=== PATIENT | male | born 1940 | race American Indian/Alaskan Native ===

== ENCOUNTER 2016-10-24 13:22 | Outpatient (CLI) | payer MEDICARE | END 2016-10-24 13:23 | disposition home or self-care (01) | LOC: CT 13:22 | PROVIDERS: ATTEND Otolaryngology | DX: R13.12 Dysphagia, oropharyngeal phase (principal) | CPT/HCPCS: 36415; 82565; 84520 ==

== ENCOUNTER 2016-11-02 09:05 | Outpatient (CLI) | payer MEDICARE ==
--- NOTE | 2016-11-02 09:57 | Fluoroscopy Report ---
Modified barium swallow: History: Dysphagia. Findings: There is no anatomic obstruction to flow of liquid and semisolid the cervical esophagus. Extrinsic pressure noted on the posterior aspect of the esophagus due to cervical spondylosis lower cervical esophagus. No significant narrowing of the lumen. Impression: Additional findings would be provided by speech therapist.
== END 2016-11-02 09:06 | disposition home or self-care (01) ==
LOC: PT 09:05
PROVIDERS: ATTEND Otolaryngology
DX: R13.12 Dysphagia, oropharyngeal phase (principal)
CPT/HCPCS: 74230; 92611; G8996; G8997; G8998

== ENCOUNTER 2017-02-18 06:21 | Inpatient (IN) | payer MEDICARE ==
[2017-02-15 14:42] LABS: Basophils % (Auto) 0.5 % (0.0-1.8); Eosinophils % (Auto) 1.1 % (0.0-4.3); Hematocrit 21.2 % (35.5-45.6); Hemoglobin 7.1 gm/dl (11.8-15.2); Mean Corpuscular HGB Conc 34 % (32-34); Mean Corpuscular Hemoglobin 31 pg (28-32); Mean Corpuscular Volume 91 fl (84-94); Platelet Count 159 K/mm3 (140-440); Red Blood Count 2.33 M/mm3 (3.65-5.03); Red Cell Distribution Width 17.9 % (13.2-15.2); White Blood Count 4.3 K/mm3 (4.5-11.0)
[2017-02-15 14:53] LABS: INR 1.06 (0.87-1.13)
[2017-02-15 14:54] LABS: Partial Thromboplastin Time 30.4 Sec. (24.2-36.6)
--- NOTE | 2017-02-15 14:59 | Anesthesia Consultation ---
Anesthesia Consult and Med Hx Date of service: 02/18/17 - Airway Anesthetic Teeth Evaluation: Partials (upper) ROM Head & Neck: Adequate Mental/Hyoid Distance: Adequate Mallampati Class: Class II Intubation Access Assessment: Probably Good - Pulmonary Exam CTA: Yes - Cardiac Exam Cardiac Exam: RRR - Pre-Operative Health Status ASA Pre-Surgery Classification: ASA3 Proposed Anesthetic Plan: General - Pulmonary Hx Smoking: No Hx Asthma: No Hx Sleep Apnea: No (TORSTEN PRE SCREEN HIGH RISK) - Cardiovascular System Hx Hypertension: Yes (X 40 YRS) Hx Pacemaker: No - Central Nervous System Hx Neuromuscular Disorder: No Hx Seizures: No - Gastrointestinal Hx Ulcer: Yes (12/2016) - Endocrine Hx Renal Disease: Yes (CKD, bph, urninary rention) Hx End Stage Renal Disease: No Hx Thyroid Disease: No - Hematic Hx Anemia: Yes - Other Systems Hx Cancer: No
[2017-02-15 15:02] LABS: Albumin 3.6 g/dL (3.9-5); Albumin/Globulin Ratio 1.2 %; Bilirubin,Total 0.2 mg/dL (0.1-1.2); Calcium 8.5 mg/dL (8.4-10.2); Chloride 100.2 mmol/L (98-107); Total Protein 6.7 g/dL (6.3-8.2)
[~2017-02-18 06:21] MED LIST: ANCEF/STERILE WATER 2 GM/20 ML IV NR; NACL 0.9% 1000 ML 1,000 ML IV SCH; PEPCID PO NR
[2017-02-18] MEDS ORDERED: NEO SYNEPHRINE/NS Syringe(OR USE) IV ONE (08:00)
[2017-02-18] MEDS ORDERED: SUBLIMAZE ONE (08:49)
[2017-02-18] MEDS ORDERED: XYLOCAINE MPF 2% ONE (08:49)
[2017-02-18] MEDS ORDERED: DIPRIVAN 10 MG/ML IV ONE (08:49)
[2017-02-18] MEDS ORDERED: ePHEDrine SULFATE ONE (09:42)
[2017-02-18] MEDS ORDERED: SORBITOL-MANNITOL IRRIG IR ONE (10:00)
[2017-02-18] MEDS ORDERED: NACL 0.9% IR ONE (10:00)
[2017-02-18] MEDS ORDERED: NACL 0.9% 500 ML 500 ML IV ONE (10:00)
[2017-02-18] MEDS ORDERED: WATER FOR IRRIG STERILE IR ONE (10:00)
[2017-02-18] MEDS ORDERED: ZOFRAN ONE (10:04)
--- NOTE | 2017-02-18 10:16 | Short Stay Summary ---
Short Stay Documentation Date of service: 02/18/17 - History H&P: obtained from office - Allergies and Medications Current Medications: Allergies No Known Allergies Allergy (Verified 02/14/17 10:11) Home Medications Medication Instructions Recorded Confirmed Last Taken Type Allopurinol 100 mg PO DAILY 02/14/17 02/14/17 02/18/17 04:00 History Calcium Carbonate [Calcium] 500 mg PO DAILY 02/14/17 02/14/17 02/18/17 04:00 History Omeprazole Magnesium [PriLOSEC Otc] 20 mg PO QDAY 02/14/17 02/14/17 02/18/17 04: 00 History amLODIPine [Norvasc] 5 mg PO DAILY 02/14/17 02/14/17 02/18/17 04:00 History Active Medications Cefazolin Sodium (Ancef/Sterile Water 2 Gm/20 Ml) 2 gm IV PREOP NR Stop: 02/18/17 21:00 Famotidine (Pepcid) 20 mg PO PREOP NR Stop: 02/18/17 23:59 Last Admin: 02/18/17 08:00 Dose: 20 mg Sodium Chloride (Nacl 0.9% 1000 Ml) 1,000 mls @ 75 mls/hr IV DIRECT CARMEN Last Admin: 02/18/17 08:20 Dose: 75 mls/hr - Brief post op/procedure progress note Date of procedure: 02/18/17 Pre-op diagnosis: bph,retention Post-op diagnosis: same Procedure: cysto, TURP Anesthesia: GETA Surgeon: TANAY BEST Estimated blood loss: minimal Pathology: list (prostat) Specimen disposition: to lab Condition: stable - Hospital course Hospital course: alvasilverio on chart received 2 units PRBCS looks good - Disposition Condition at discharge: Stable Disposition: [id number] STILL A PATIENT Short Stay Discharge Plan Follow up with: ELI JAUREGUI MD [Primary Care Provider] - 7 Days
[2017-02-18] MEDS ORDERED: DILAUDID IV PRN (10:28)
[2017-02-18] MEDS ORDERED: DILAUDID ONE (10:28)
[2017-02-18] MEDS ORDERED: ZOFRAN IV PRN ×2 (10:28→11:00)
[2017-02-18] MEDS ORDERED: D50W (25GM) Syringe IV PRN (10:30)
[2017-02-18] MEDS ORDERED: NARCAN 0.4 MG/1 ML IV PRN (10:30)
--- NOTE | 2017-02-18 10:50 | Operative Report ---
PREOPERATIVE DIAGNOSES: Urinary retention, BPH. POSTOPERATIVE DIAGNOSES: Urinary retention, BPH. PROCEDURE: Cystoscopy, bilateral retrograde pyelogram, transurethral resection of the prostate. SURGEON: Arnol Frederick MD ANESTHESIA: General. ESTIMATED BLOOD LOSS: Minimal. FLUIDS: Crystalloid. COMPLICATIONS: No complications. INDICATIONS: This 76-year-old gentleman known to my service for several years with history of BPH. The patient went into urinary retention after a colonoscopy has failed medical management. Urodynamic testing was consistent with obstruction, postvoid residual of 240 mL. Discussed options. He agreed to proceed with surgical intervention. He also has a history of hypertension, diabetes, and hyperlipidemia. DESCRIPTION OF PROCEDURE: The patient was taken to the operative suite, placed in a supine position. After adequate general anesthesia, placed in a dorsal lithotomy position, prepped and draped in a sterile fashion. Pancystourethroscopy was performed with 22-Beninese Storz cystoscope. No urethral abnormalities. His prostate displayed moderate trilobar prostatic obstruction. His bladder, no tumors or stones were noted; however, he did have diffuse trabeculation. Bilateral retrograde pyelograms were obtained with an 8-Beninese Emmet catheter and 8 mL of contrast. The patient did display some mild dilation. Next, using a 27-Beninese resectoscope and loop with the cutting and coag on 160 and 60, transurethral resection of the prostate was performed in a systematic fashion, taking down the median lobe, left and right lateral lobes respectively. The chips were evacuated out with the JobSync evacuator. Adequate hemostasis was achieved. Upon completion of the procedure, the veru, external sphincter and ureteral orifices were intact. A 24-Beninese 3-way catheter with stylet was placed, irrigated clear. No clots. JOB# [id number] SALONI/RODNEY
[2017-02-18] MEDS ORDERED: NORCO 5/325 PO PRN (11:00)
[2017-02-18 14:24] LABS: Hematocrit 24.6 % (35.5-45.6); Hemoglobin 8.2 gm/dl (11.8-15.2); Mean Corpuscular HGB Conc 33 % (32-34); Mean Corpuscular Hemoglobin 29 pg (28-32); Mean Corpuscular Volume 87 fl (84-94); Platelet Count 130 K/mm3 (140-440); Red Blood Count 2.82 M/mm3 (3.65-5.03); Red Cell Distribution Width 19.8 % (13.2-15.2); White Blood Count 4.5 K/mm3 (4.5-11.0)
[2017-02-18] MEDS: NACL 0.9% 1000 ML 1,000 ML IV SCH ×2 (14:35→23:31)
[2017-02-18] MEDS: ANCEF/NS 1 GM/50 ML 1 GM/50 ML BAG IV SCH ×3 (14:36→23:31)
[2017-02-18 14:52] LABS: Basophils % (Manual) 0 % (0.0-1.8); Blastocytes % (Manual) 0 %
[2017-02-18 14:53] LABS: Acanthocytes 1+; Anisocytosis 1+; Burr Cells 1+; Diff Status Complete; Tear Drop Cells 1+
[2017-02-18 15:20] LABS: Calcium 8.3 mg/dL (8.4-10.2); Potassium 4.8 mmol/L (3.6-5.0)
[2017-02-18] MEDS ORDERED: NACL 0.9% 1,000 ML IR ONE (16:56)
[2017-02-18] MEDS: MORPHINE IV PRN ×2 (17:32→23:05)
[2017-02-18] MEDS ORDERED: AMBIEN PO PRN (22:00)
[2017-02-19 05:00] LABS: Basophils % (Auto) 0.5 % (0.0-1.8); Eosinophils % (Auto) 0.7 % (0.0-4.3); Hematocrit 24.5 % (35.5-45.6); Hemoglobin 8.3 gm/dl (11.8-15.2); Mean Corpuscular HGB Conc 34 % (32-34); Mean Corpuscular Hemoglobin 29 pg (28-32); Mean Corpuscular Volume 87 fl (84-94); Platelet Count 141 K/mm3 (140-440); Red Blood Count 2.83 M/mm3 (3.65-5.03); Red Cell Distribution Width 19.5 % (13.2-15.2); White Blood Count 4.6 K/mm3 (4.5-11.0)
[2017-02-19 05:10] LABS: Calcium 7.8 mg/dL (8.4-10.2); Chloride 104.9 mmol/L (98-107); Potassium 4.8 mmol/L (3.6-5.0)
[2017-02-19] MEDS: NACL 0.9% IR SCH ×3 (06:56→06:58)
[2017-02-19 08:26] VITALS: BP 181/96
--- NOTE | 2017-02-19 09:00 | Fluoroscopy Report ---
FLUOROSCOPY RETROGRADE UROGRAPHY History: Benign prostatic hyperplasia, urinary retention. Fluoroscopy was provided by radiology during retrograde urography by urology. A 8 fluoroscopic images were captured. Please correlate with the procedural report by Dr. Frederick.
[2017-02-19] MEDS ORDERED: OSCAL PO SCH (10:00)
[2017-02-19] MEDS ORDERED: NON-FORMULARY (Omeprazole Magnesium [Prilosec Otc] 20 MG) PO SCH (10:00)
[2017-02-19] MEDS ORDERED: ZYLOPRIM PO SCH (10:00)
[2017-02-19] MEDS ORDERED: PROTONIX PO SCH (10:00)
== END 2017-02-19 12:00 | disposition home or self-care (01) | DRG 714 ==
LOC: OR 06:21 → 3B-SURG 10:18
PROVIDERS: ADMIT Urology; ATTEND Urology
PROC: 0VT08ZZ Resection of Prostate, Via Natural or Artificial Opening Endoscopic (ICD-10-PCS; principal; 2017-02-18)
PROC: BT141ZZ Fluoroscopy of Kidneys, Ureters and Bladder using Low Osmolar Contrast (ICD-10-PCS; 2017-02-18)
PROC: 30233N1 Transfusion of Nonautologous Red Blood Cells into Peripheral Vein, Percutaneous Approach (ICD-10-PCS; 2017-02-18)
DX: N40.1 Benign prostatic hyperplasia with lower urinary tract symptoms (principal); I12.9 Hypertensive chronic kidney disease with stage 1 through stage 4 chronic kidney disease, or unspecified chronic kidney disease; N18.9 Chronic kidney disease, unspecified; E11.22 Type 2 diabetes mellitus with diabetic chronic kidney disease; R33.8 Other retention of urine; Z87.891 Personal history of nicotine dependence
CPT/HCPCS: 36415; 74420; 80048; 80053; 82962; 85007; 85025; 85610; 85730; 86850; 86900; 86901; 86920; 88305; A4217; J0690; J1170; J2270; J2370; J2405; J2704; J3010; J7030; P9016; Q9967